=== PATIENT | male | born 1985 ===

== ENCOUNTER 2019-10-22 14:05 | Emergency (ER) | payer BC ==
[2019-10-22] MEDS ORDERED: Bacitracin/Neomycin/Polymyxin B Oint 0.9 GM U/D Packet TOP ONE (14:19)
--- NOTE | 2019-10-22 14:30 | EDM.PDOC ---
ED HPI GENERAL MEDICAL PROBLEM - General Chief Complaint: General Stated Complaint: FISHHOOK Time Seen by Provider: 10/22/19 14:28 Source of Information: Reports: Patient History Limitations: Reports: No Limitations - History of Present Illness INITIAL COMMENTS - FREE TEXT/NARRATIVE: Patient comes to ER with fish hook imbedded in back of left hand. Incident happened several hours ago. Tetanus should be up to date per patient. - Related Data Allergies Allergy/AdvReac Type Severity Reaction Status Date / Time No Known Allergies Allergy Verified 10/22/19 14:18 Past Medical History - Past Health History Medical/Surgical History: Denies Medical/Surgical History Social & Family History - Tobacco Use Smoking Status *Q: Current Some Day Smoker Years of Tobacco use: 19 Packs/Tins Daily: 0.5 - Caffeine Use Caffeine Use: Reports: Coffee - Recreational Drug Use Recreational Drug Use: No ED ROS GENERAL - Review of Systems Review Of Systems: See Below Skin: Reports: Other (fish hook lodged in skin back of left hand) ED EXAM, GENERAL - Physical Exam Exam: See Below Exam Limited By: No Limitations General Appearance: Alert, WD/WN, No Apparent Distress Eye Exam: Bilateral Eye: EOMI, PERRL Ears: Hearing Grossly Normal Head: Atraumatic, Normocephalic Respiratory/Chest: No Respiratory Distress Extremities: Other (single fish hook lodged in skin back of left hand) Neurological: Alert, Oriented, Normal Cognition, Normal Gait, No Motor/Sensory Deficits Psychiatric: Normal Affect, Normal Mood ED GENERAL MEDICAL PROCEDURES - Additional/Other Procedure(s) Other (Free Text) Procedure(s): 2cc 1% Lidocaine injected around fish hook for anesthesia. Fish hook pushed through skin/susana clipped/rest of fish hook withdrawn from entry wound. Wound cleansed. Sterile dressing and antibiotic ointment applied by nurse. Wound care reviewed with patient. He will check on tetanus status with his clinic tomorrow but is pretty certain that it is up to date. Course - Vital Signs Last Recorded V/S: Last Vital Signs Temp 36.8 C 10/22/19 14:12 Pulse 79 10/22/19 14:12 Resp 20 10/22/19 14:12 BP 123/71 10/22/19 14:12 Pulse Ox 100 10/22/19 14:12 - Orders/Labs/Meds Meds: Medications Discontinued Medications Generic Name Dose Route Start Last Admin Trade Name Niecy PRN Reason Stop Dose Admin Lidocaine HCl 5 ml 10/22/19 14:07 10/22/19 14:11 Xylocaine-Mpf 1% INJECT 10/22/19 14:08 5 ml ONETIME ONE Administration Neomycin/Polymyxin/Bacitracin 1 each 10/22/19 14:19 10/22/19 14:23 Triple Antibiotic Oint TOP 10/22/19 14:20 1 each ONETIME ONE Administration Departure - Departure Time of Disposition: 14:29 Disposition: Home, Self-Care 01 Condition: Good Clinical Impression: Fish hook injury of left hand Qualifiers: Encounter type: initial encounter Qualified Code(s): S69.92XA - Unspecified injury of left wrist, hand and finger(s), initial encounter - Discharge Information *PRESCRIPTION DRUG MONITORING PROGRAM REVIEWED*: Not Applicable *COPY OF PRESCRIPTION DRUG MONITORING REPORT IN PATIENT MARIA E: Not Applicable Forms: ED Department Discharge Additional Instructions: Keep area clean. OK to use topical antibiotic twice a day for next several days while site is healing. Follow up for recheck if any problems or signs of infection develop. Tell your friends that your initial plan for fish hook removal was spot on! Sepsis Event Note (ED) - Evaluation Sepsis Screening Result: No Definite Risk - Focused Exam Vital Signs: Vital Signs Temp Pulse Resp BP Pulse Ox 10/22/19 14:12 36.8 C 79 20 123/71 100
== END 2019-10-22 14:47 | disposition home or self-care (01) ==
LOC: LL.ED 14:05
DX: S60.552A Superficial foreign body of left hand, initial encounter (principal); F17.210 Nicotine dependence, cigarettes, uncomplicated; W45.8XXA Other foreign body or object entering through skin, initial encounter
CPT/HCPCS: 99282; J2001